=== PATIENT | female | born 1960 | race African-American/Black ===

== ENCOUNTER → 2022-09-06 | Day surgery (SDC) | payer BC ==
[~2022-09-06] MED LIST: ALLOPURINOL300 MG PO; AZOR 5-40 MG T1 EACH PO; FEROSUL325 MG PO; LIDOCAINE HCL 2% LOCAL INJ 5 ML SDV VIAL INJ ONE; METOCLOPRAMIDE HCL 10 MG/2ML VIAL ONE; METOPROLOL PO; MIDAZOLAM HCL 2 MG/2 ML VIAL ONE; PANTOPRAZOLE SO40 MG PO; POVIDONE IODINE 0.05% 0.05 % ML PO ONE; PROPOFOL IV EMULSION 10 MG/ML 20 ML VIAL ONE; TRIAMTERENE-HCTZ1 EA PO; VITAMIN D325 MCG PO
[2022-09-06 12:00] VITALS: BP 104/74
== END | disposition home or self-care (01) ==
LOC: OR 09:11
PROVIDERS: ATTEND Internal Medicine Gastroenterology
DX: Z09 Encounter for follow-up examination after completed treatment for conditions other than malignant neoplasm (principal); D12.4 Benign neoplasm of descending colon; K63.89 Other specified diseases of intestine; K64.8 Other hemorrhoids; K21.9 Gastro-esophageal reflux disease without esophagitis; Z71.3 Dietary counseling and surveillance; D50.9 Iron deficiency anemia, unspecified; I10 Essential (primary) hypertension; M10.9 Gout, unspecified; Z88.6 Allergy status to analgesic agent; Z01.810 Encounter for preprocedural cardiovascular examination; Z79.899 Other long term (current) drug therapy; Z68.37 Body mass index [BMI] 37.0-37.9, adult
CPT/HCPCS: 45380; 45385; 93005; J2001; J2250; J2704; J2765